=== PATIENT | female | born 1990 | race Caucasian/White ===

== ENCOUNTER 2019-04-13 17:01 | Emergency (ER) | payer BC ==
[2019-04-13 19:44] VITALS: BP 136/68
--- NOTE | 2019-04-13 20:23 | UC ---
Knee Pain HPI - HPI Summary HPI Summary: 38-year-old woman comes in with chief complaint of right knee pain. One week ago she slipped and fell on the ice and struck her anterior right knee. She's been able to ambulate with pain. She has put ice on it which does decrease the pain. No complaint of any weakness or numbness or laxity. - History of Current Complaint Chief Complaint: UCLowerExtremity Stated Complaint: RIGHT KNEE INJURY Time Seen by Provider: 04/13/19 20:13 Pain Intensity: 1 - Allergies/Home Medications Allergies/Adverse Reactions: Allergies Allergy/AdvReac Type Severity Reaction Status Date / Time ceftriaxone [From Rocephin] Allergy Vomiting Verified 04/13/19 19:45 tramadol Allergy Vomiting Verified 04/13/19 19:45 PMH/Surg Hx/FS Hx/Imm Hx Previously Healthy: Yes - Surgical History Surgical History: Yes Surgery Procedure, Year, and Place: right arm reconstruction, hand surgery, floating rib placement, - Family History Known Family History: Positive: Non-Contributory - Social History Alcohol Use: Occasionally Substance Use Type: None Smoking Status (MU): Never Smoked Tobacco Review of Systems All Other Systems Reviewed And Are Negative: Yes Constitutional: Positive: Negative Skin: Positive: Negative Eyes: Positive: Negative ENT: Positive: Negative Respiratory: Positive: Negative Cardiovascular: Positive: Negative Gastrointestinal: Positive: Negative Motor: Positive: Negative Neurovascular: Positive: Negative Musculoskeletal: Positive: Other: - SEE HPI Neurological/Mental Status: Positive: Negative Psychological: Positive: Negative Is Patient Immunocompromised?: No Physical Exam Triage Information Reviewed: Yes Appearance: Well-Appearing, No Pain Distress, Well-Nourished Vital Signs: Initial Vital Signs Temp 98.8 F 04/13/19 19:37 Pulse 100 04/13/19 19:37 Resp 18 04/13/19 19:37 BP 136/68 04/13/19 19:37 Pulse Ox 98 04/13/19 19:37 Vital Signs Reviewed: Yes Eye Exam: Normal Eyes: Positive: Conjunctiva Clear Neck: Positive: Supple Respiratory: Positive: No respiratory distress Musculoskeletal: Positive: Other: - Right knee is tender to palpation over the patellotibial tendon. Knee has full range of motion full-strength. Nontender on the lateral and medial knee and posterior knee. Stable to examination. Patient is able to flex and extend the knee. Patella tibial tendon is intact to exam. Neurological: Positive: Alert Psychological: Positive: Age Appropriate Behavior Skin Exam: Normal Knee Pain Course/Dx - Course Course Of Treatment: I discussed the x-rays with the patient. I did not see any fracture. Final radiologist reading is pending. Plan is ice anti-inflammatories and follow-up with sports medicine or orthopedics if not completely improved. - Differential Dx/Diagnosis Provider Diagnosis: Right anterior knee pain Discharge ED - Sign-Out/Discharge Documenting (check all that apply): Patient Departure All imaging exams completed and their final reports reviewed: No - Discharge Plan Condition: Stable Disposition: HOME Patient Education Materials: Knee Pain (ED) Referrals: [facility] [Provider Group] Bridger Obando MD [Medical Doctor] - Additional Instructions: FOLLOW UP WITH SPORTS MEDICINE OR ORTHOPEDICS IF NOT COMPLETELY IMPROVED. GET REEVALUATED SOONER IF NOT IMPROVED OR WORSE OR ANY QUESTIONS OR CONCERNS. - Billing Disposition and Condition Condition: STABLE Disposition: Home
--- NOTE | 2019-04-14 07:44 | UC ---
- Progress Note Progress Note: wet read correct Course/Dx - Diagnoses Provider Diagnoses: Right anterior knee pain Discharge ED - Sign-Out/Discharge Documenting (check all that apply): Post-Discharge Follow Up All imaging exams completed and their final reports reviewed: Yes - Discharge Plan Condition: Stable Disposition: HOME Patient Education Materials: Knee Pain (ED) Referrals: [facility] [Provider Group] Bridger Obando MD [Medical Doctor] - Additional Instructions: FOLLOW UP WITH SPORTS MEDICINE OR ORTHOPEDICS IF NOT COMPLETELY IMPROVED. GET REEVALUATED SOONER IF NOT IMPROVED OR WORSE OR ANY QUESTIONS OR CONCERNS. - Billing Disposition and Condition Condition: STABLE Disposition: Home
== END 2019-04-13 20:28 | disposition home or self-care (01) ==
LOC: UCCORT 17:01
DX: M25.561 Pain in right knee (principal); W00.0XXA Fall on same level due to ice and snow, initial encounter; Y92.9 Unspecified place or not applicable; Z88.1 Allergy status to other antibiotic agents; Z88.5 Allergy status to narcotic agent
CPT/HCPCS: 99201; G0463